=== PATIENT | female | born 1970 | race Two or more races ===

== ENCOUNTER 2019-09-20 08:15 | Outpatient (CLI) | payer OTHER | END 2019-09-20 08:18 | disposition home or self-care (01) | LOC: MAMO-SONO 08:15 | DX: Z12.31 Encounter for screening mammogram for malignant neoplasm of breast (principal); Z87.898 Personal history of other specified conditions; N64.4 Mastodynia ==

== ENCOUNTER 2020-11-23 06:57 | Outpatient (CLI) | payer OTHER | END 2020-11-23 07:04 | disposition home or self-care (01) | LOC: LAB 06:57 | PROVIDERS: ATTEND Surgery | DX: Z20.828 Contact with and (suspected) exposure to other viral communicable diseases (principal) ==

== ENCOUNTER 2020-11-23 07:09 | Day surgery (SDC) | payer OTHER | END 2020-11-23 13:07 | disposition home or self-care (01) | LOC: AMB-ENDOS 07:09 | PROVIDERS: ATTEND Surgery | DX: K62.89 Other specified diseases of anus and rectum (principal); Z12.11 Encounter for screening for malignant neoplasm of colon; Z20.822 Contact with and (suspected) exposure to COVID-19 ==

== ENCOUNTER 2021-06-24 12:32 | Outpatient (CLI) | payer OTHER | END 2021-06-24 12:56 | disposition home or self-care (01) | LOC: MAMO-SONO 12:32 | PROVIDERS: ATTEND Obstetrics & Gynecology | DX: N64.89 Other specified disorders of breast (principal); Z12.31 Encounter for screening mammogram for malignant neoplasm of breast ==

== ENCOUNTER 2021-06-25 08:00 | Outpatient (CLI) | payer OTHER | END 2021-06-25 08:30 | disposition home or self-care (01) | LOC: PPH VACUNA 08:00 | PROVIDERS: ATTEND Emergency Medicine Pediatric Emergency Medicine | DX: Z23 Encounter for immunization (principal) ==

== ENCOUNTER 2022-08-23 07:41 | Outpatient (CLI) | payer OTHER | END 2022-08-23 07:50 | disposition home or self-care (01) | LOC: SONOGRAMA 07:41 | PROVIDERS: ATTEND Internal Medicine Hematology & Oncology | DX: L04.0 Acute lymphadenitis of face, head and neck (principal); E89.0 Postprocedural hypothyroidism ==

== ENCOUNTER → 2022-11-25 | Outpatient (CLI) | payer OTHER | END | disposition home or self-care (01) | LOC: MAMO-SONO 13:42 | PROVIDERS: ATTEND Specialist | DX: N60.01 Solitary cyst of right breast (principal); N60.02 Solitary cyst of left breast ==

== ENCOUNTER 2024-08-09 07:32 | Outpatient (CLI) | payer OTHER | END 2024-08-09 07:42 | disposition home or self-care (01) | LOC: MAMO-SONO 07:32 | DX: Z12.31 Encounter for screening mammogram for malignant neoplasm of breast (principal) ==

== ENCOUNTER 2024-11-01 08:50 | Outpatient (CLI) | payer OTHER | END 2024-11-01 09:00 | disposition home or self-care (01) | LOC: SONOGRAMA 08:50 | PROVIDERS: ATTEND Specialist | DX: N83.201 Unspecified ovarian cyst, right side (principal); N83.202 Unspecified ovarian cyst, left side ==